=== PATIENT | female | born 1950 | race Native Hawaiian/Other Pacific Islander ===

== ENCOUNTER 2016-10-07 23:10 | Emergency (ER) | payer MEDICARE, OTHER ==
[2016-10-07 23:17] VITALS: BP 172/106
--- NOTE | 2016-10-07 23:31 | ED Physician Documentation ---
History of Present Illness - Stated complaint Stated Complaint: COUGHING - Chief complaint Chief Complaint: Resp - History obtained from History obtained from: Patient, Family - History of Present Illness Timing: Other (2 months ago) Pain level max: 0 Pain level now: 0 Improved by: nothing Worsened by: seems to be worse in the mornings - Additonal information Additional information: Patient is a 65-year-old female who presents to the emergency department complaining of coughing for the past month and a half or so. Thought it may be related to her lisinopril so stopped this. She states that she also has a history of seasonal allergies, but quit taking her allergy medication. States that she tried Robitussin, but this did not help the cough. The cough is dry. No fevers. Review of Systems Constitutional: denies: Fever, Chills Nose: reports: Rhinorrhea / runny nose (occasionally feels her nose running down her throat) Throat: denies: Sore throat Cardiac: denies: Chest pain / pressure GI: denies: Abdominal Pain, Vomiting, Diarrhea Skin: denies: Rash Musculoskeletal: denies: Neck pain, Back pain Neurologic: denies: Headache PD PAST MEDICAL HISTORY - Past Medical History Past Medical History: Yes Cardiovascular: Hypertension Endocrine/Autoimmune: Type 2 diabetes - Past Surgical History Past Surgical History: Yes - Present Medications Home Medications: Ambulatory Orders Medication Instructions Recorded Confirmed Ibuprofen [Motrin] 800 mg PO Q8H PRN #30 tablet 07/06/15 Benzonatate [Tessalon Perle] 100 - 200 mg PO TID PRN #30 capsule 10/07/16 Cetirizine [ZyrTEC] 10 mg PO DAILY #14 tablet 10/07/16 - Allergies Allergies/Adverse Reactions: Allergies Allergy/AdvReac Type Severity Reaction Status Date / Time No Known Drug Allergies Allergy Verified 07/06/15 19:03 - Social History Does the pt smoke?: No Smoking Status: Never smoker Does the pt drink ETOH?: No Does the pt have substance abuse?: No - Family History Family history: reports: Non contributory PD ED PE NORMAL - Vitals Vital signs reviewed: Yes - General General: Alert and oriented X 3, No acute distress, Well developed/nourished - HEENT HEENT: PERRL, Ears normal, Moist mucous membranes, Other (cobblestoning of the posterior oropharynx. otherwise normal exam.) - Neck Neck: Supple, no meningeal sign - Cardiac Cardiac: RRR, Strong equal pulses - Respiratory Respiratory: No respiratory distress, Clear bilaterally - Derm Derm: Warm and dry - Neuro Neuro: Alert and oriented X 3 - Psych Psych: Normal mood, Normal affect Results - Vitals Vitals: Vital Signs - 24 hr 10/07/16 23:14 Temperature 36.6 C Heart Rate 94 Respiratory 18 Rate Blood Pressure 172/106 H O2 Saturation 97 Oxygen O2 Source Room air PD MEDICAL DECISION MAKING - ED course Complexity details: re-evaluated patient, considered differential, d/w patient, d/w family ED course: Patient is a 65-year-old female who presents to the emergency department with coughing for the past month and a half. Seems to be related to postnasal drip. She is well-appearing, nontoxic. Afebrile. Normal oropharyngeal exam except for posterior cobblestoning. Will place her on allergy medication as well as antitussives. We will have her follow-up with her doctor for further evaluation of her hypertension. Patient counseled regarding signs and symptoms for which I believe and urgent re-evaluation would be necessary. Patient with good understanding of and agreement to plan and is comfortable going home at this time This document was made in part using voice recognition software. While efforts are made to proofread this document, sound alike and grammatical errors may occur. Departure - Departure Disposition: 01 Home, Self Care Clinical Impression: Post-nasal drip Hypertension Qualifiers: Hypertension type: essential hypertension Qualified Code(s): I10 - Essential ( primary) hypertension Condition: Good Instructions: ED Allergy Seasonal Follow-Up: Frieda Padilla MD [Provider Admit Priv/Credential] - Within 1 week Prescriptions: Benzonatate [Tessalon Perle] 100 - 200 mg PO TID PRN #30 capsule PRN Reason: Cough Cetirizine [ZyrTEC] 10 mg PO DAILY #14 tablet Comments: Return if you worsen. Take the allergy medication at night and this should help the post nasal drip the next day.
== END 2016-10-07 23:35 | disposition home or self-care (01) ==
LOC: ED 23:10
DX: R09.82 Postnasal drip (principal); I10 Essential (primary) hypertension; E11.9 Type 2 diabetes mellitus without complications
CPT/HCPCS: 99283

== ENCOUNTER 2017-04-08 08:38 | Outpatient (CLI) | payer MEDICARE, OTHER ==
--- NOTE | 2017-04-09 18:32 | Mammography Report ---
DIGITAL SCREENING MAMMOGRAM: 04/08/2017 CLINICAL INDICATION: A 66-year-old nulliparous patient for screening. COMPARISON: 05/2015, 09/2012. TECHNIQUE: Routine CC and MLO projections as well as bilateral laterally exaggerated craniocaudal views were obtained of the breasts. FINDINGS: The breasts again demonstrate heterogeneously dense fibroglandular parenchyma bilaterally. Coarse and punctate, typically benign calcifications are present. No suspicious masses, clustered microcalcifications, or regions of architectural distortion are identified. IMPRESSION: BENIGN FINDINGS. RECOMMENDATION: Routine annual screening unless otherwise clinically indicated. BIRADS category 2, benign findings. STANDARD QUALIFYING STATEMENTS 1. This examination was reviewed with the aid of Computed-Aided Detection (CAD). 2. A negative or benign imaging report should not delay biopsy if clinically suspicious findings are present. Consider surgical consultation if warranted. More than 5% of cancers are not identified by imaging. 3. Dense breasts may obscure an underlying neoplasm. TD: 04/09/2017 18:31
== END 2017-04-08 08:39 | disposition home or self-care (01) ==
LOC: DI 08:38
PROVIDERS: ATTEND Internal Medicine
DX: Z12.31 Encounter for screening mammogram for malignant neoplasm of breast (principal)
CPT/HCPCS: 77067

== ENCOUNTER 2017-04-25 06:00 | Day surgery (SDC) | payer MEDICARE, OTHER ==
[2017-04-25] MEDS ORDERED: LACTATED RINGERS 1,000 ML IV ONE (06:45)
[2017-04-25] MEDS ORDERED: fentaNYL 100 MCG/2 ML VIAL IVP ONE (07:36)
[2017-04-25] MEDS ORDERED: MIDAZOLAM 2 MG/2 ML VIAL IVP ONE (07:36)
[2017-04-25 08:18] VITALS: BP 108/59
== END 2017-04-25 06:01 | disposition home or self-care (01) ==
LOC: SDS 06:00
PROVIDERS: ATTEND Surgery
PROC: 0DBH8ZX Excision of Cecum, Via Natural or Artificial Opening Endoscopic, Diagnostic (ICD-10-PCS; principal; 2017-04-25 07:30)
DX: Z12.11 Encounter for screening for malignant neoplasm of colon (principal); K63.5 Polyp of colon; K64.8 Other hemorrhoids; E11.9 Type 2 diabetes mellitus without complications; E78.5 Hyperlipidemia, unspecified; I10 Essential (primary) hypertension; Z79.84 Long term (current) use of oral hypoglycemic drugs
CPT/HCPCS: 45380; J7120

== ENCOUNTER 2018-03-27 15:12 | Outpatient (CLI) | payer MEDICARE, OTHER ==
--- NOTE | 2018-03-28 10:56 | Ultrasound Report ---
Reason: ELEVATED LFTS Procedure Date: 03/27/2018 Accession Number: [id number] / [id number] Procedure: US - Abdomen Limited CPT Code: FULL RESULT: EXAM: ABDOMEN ULTRASOUND LIMITED, RUQ EXAM DATE: 03/27/2018 04:20 PM. CLINICAL HISTORY: ELEVATED LFTS. COMPARISON: None. TECHNIQUE: Real-time scanning was performed with static images obtained. FINDINGS: Liver: Liver parenchyma is heterogeneous and moderately hyperechoic. No discrete liver masses or intrahepatic bile duct dilation. However, evaluation for masses is limited secondary to the echogenicity. 18.4 cm. Main portal vein flow: Hepatopetal. Gallbladder: Distended gallbladder. No gallbladder wall thickening, stone or sonographic Barr sign. No pericholecystic fluid. Biliary System: CBD measures 9 mm. Prominent common bile duct. No intrahepatic bile duct dilation. No common bile duct stone or mass. Pancreas: Normal. Right kidney: 10 cm No hydronephrosis. Abdominal aorta and IVC: Normal. Other: None. IMPRESSION: 1. Enlarged moderately fatty liver. No mass. 2. Distended gallbladder without gallstones or sonographic findings concerning for acute cholecystitis. 3. Prominent common bile duct measures up to 9 mm. No obvious stone or mass. RADIA
== END 2018-03-27 15:13 | disposition home or self-care (01) ==
LOC: DI 15:12
PROVIDERS: ATTEND Internal Medicine
DX: K76.0 Fatty (change of) liver, not elsewhere classified (principal); K82.8 Other specified diseases of gallbladder
CPT/HCPCS: 76705

== ENCOUNTER 2018-04-14 13:53 | Outpatient (CLI) | payer MEDICARE, OTHER ==
--- NOTE | 2018-04-15 08:39 | Mammography Report ---
Reason: ROUTINE MAMMO Procedure Date: 04/14/2018 Accession Number: [id number] / [id number] Procedure: ARTEM - Screening Mammo w/Gage CPT Code: FULL RESULT: EXAM: Screening Mammo w/Gage DATE: 04/14/2018 2:18 PM CLINICAL HISTORY: Screening encounter. History of nulliparity. TECHNIQUE: Bilateral CC, laterally exaggerated CC, MLO views were obtained. COMPARISON: 04/08/2017 through 10/06/2012. FINDINGS: The breasts demonstrate heterogeneously dense fibroglandular parenchyma bilaterally. Typically benign vascular calcifications and typically benign coarse calcifications are again seen. Best seen on 3-D image 21 of the left breast 5.5 cm from the nipple (also left CC image 9 4.7 cm from the nipple) is a well-circumscribed hypodense ovoid nodule measuring up to 0.7 cm which is also identified on the 2015 study and 2012 study and therefore typically benign. No suspicious masses, clustered microcalcifications, or regions of architectural distortion are identified. IMPRESSION: Benign findings RECOMMENDATION: Routine annual screening unless otherwise clinically indicated. BIRADS CATEGORY 2: Benign findings STANDARD QUALIFYING STATEMENTS: 1. This examination was not reviewed with the aid of Computer-Aided Detection (CAD). 2. A negative or benign imaging report should not delay biopsy if clinically suspicious findings are present. Consider surgical consultation if warrented. More than 5% of cancers are not identified by imaging. 3. Dense breasts may obscure an underlying neoplasm. 4. This examination was reviewed with the aid of 3D breast imaging (tomosynthesis).
== END 2018-04-14 13:54 | disposition home or self-care (01) ==
LOC: DI 13:53
PROVIDERS: ATTEND Internal Medicine
DX: Z12.31 Encounter for screening mammogram for malignant neoplasm of breast (principal)
CPT/HCPCS: 77063; 77067

== ENCOUNTER 2018-06-09 17:11 | Emergency (ER) | payer MEDICARE, OTHER ==
--- NOTE | 2018-06-09 19:16 | ED Physician Documentation ---
PD HPI HEENT - Stated complaint Stated Complaint: LT SIDED FACE PAIN - Chief complaint Chief Complaint: Heent - History obtained from History obtained from: Patient - History of Present Illness Timing - onset: How many weeks ago (1) Timing - duration: Weeks (1) Timing - details: Gradual onset, Still present, Waxing and waning Location: Left ear (has pain around left ear, and feels like it is on left side of face as well. No rash nor sores. Has decreased hearing left ear.) Worsens: Swalllowing Associated symptoms: Swollen nodes (left side of neck). No: Fever, Congestion, Facial swelling Similar symptoms before: Has not had sx before Recently seen: Not recently seen Review of Systems Constitutional: denies: Fever, Chills, Myalgias Ears: reports: Loss of hearing, Ear pain. 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 HEENT: Chronic sinusitis, Other Psych: None Musculoskeletal: None Derm: None - Past Surgical History Past Surgical History: Yes HEENT: Cataracts - Present Medications Home Medications: Ambulatory Orders Medication Instructions Recorded Confirmed Losartan [Cozaar] 50 mg PO DAILY 04/24/17 04/24/17 Montelukast [Singulair] 10 mg PO QPM 04/24/17 04/24/17 Multivitamin [Multivitamins] 1 each PO 04/24/17 metFORMIN [Glucophage] 500 mg PO BIDWM 04/24/17 04/24/17 Doxycycline Hyclate 100 mg PO BID #20 capsule 06/09/18 Hydrocodone/Acetaminophen [[place] 1 each PO Q6H PRN #15 tablet 06/09/18 5-325 Tablet] Naproxen 375 mg PO BID #20 tablet 06/09/18 - Allergies Allergies/Adverse Reactions: Allergies Allergy/AdvReac Type Severity Reaction Status Date / Time No Known Drug Allergies Allergy Verified 07/06/15 19:03 - Social History Does the pt smoke?: No Smoking Status: Never smoker Does the pt drink ETOH?: No Does the pt have substance abuse?: No - Immunizations Immunizations are current?: Yes PD ED PE NORMAL - Vitals Vital signs reviewed: Yes - General General: Alert and oriented X 3, Well developed/nourished, Other (appears uncomfortable) - HEENT HEENT: Pharynx benign. No: Ears normal (right is okay. Left with fluid behind TM with minimal redness. The medial canal however is red with swelling. No exudate per se. ) - Neck Neck: Supple, no meningeal sign, Other (left preauricular adenopathy that is tender. ) - Cardiac Cardiac: RRR, No murmur - Respiratory Respiratory: Clear bilaterally - Abdomen Abdomen: Soft, Non tender Results - Vitals Vitals: Oxygen O2 Source Room air PD MEDICAL DECISION MAKING - ED course Complexity details: considered differential (the TM has some fluid behind it, and the canal is red with swelling. No exudate per se. There is not a rash externally and not appearing vesicular so does not seem shingles nor herpetic. ), d/w patient Departure - Departure Disposition: 01 Home, Self Care Clinical Impression: Cellulitis of left ear canal Otitis media Qualifiers: Otitis media type: suppurative Chronicity: acute Laterality: left Recurrence: non-recurrent Spontaneous tympanic membrane rupture: without spontaneous rupture Qualified Code(s): H66.002 - Acute suppurative otitis media without spontaneous rupture of ear drum, left ear Condition: Stable Record reviewed to determine appropriate education?: Yes Instructions: ED Otitis Media Acute Adult Follow-Up: Frieda Padilla MD [Primary Care Provider] - Prescriptions: Doxycycline Hyclate 100 mg PO BID #20 capsule Hydrocodone/Acetaminophen [[place] 5-325 Tablet] 1 each PO Q6H PRN #15 tablet PRN Reason: Pain Naproxen 375 mg PO BID #20 tablet Comments: The eardrum and ear canal do look red and inflamed. It looks like there is an infection there and this likely irritating the nerve coming into the face causing the pain on that side of the face. Use doxycycline antibiotic twice daily as directed. Naproxen anti-inflammatory twice daily as well. Add Tylenol or hydrocodone if needed for pain. Recheck if not improved over the next several days. Discharge Date/Time: 06/09/18 20:08
[2018-06-09] MEDS ORDERED: DOXYCYCLINE 100 MG TABLET PO STA (19:40)
[2018-06-09] MEDS ORDERED: NAPROXEN 250 MG TABLET PO STA (19:40)
[2018-06-09 20:09] VITALS: BP 184/96
--- NOTE | 2018-06-10 10:09 | ED Physician Documentation ---
ED Addendum - Addendum Addendum: 06/10/18 10:09 Took call from [facility], they do not carry that dose of naproxen, substituted 500 mg p.o. twice daily.
== END 2018-06-09 20:08 | disposition home or self-care (01) ==
LOC: ED 17:11
DX: H60.12 Cellulitis of left external ear (principal); H66.002 Acute suppurative otitis media without spontaneous rupture of ear drum, left ear; I10 Essential (primary) hypertension; E11.9 Type 2 diabetes mellitus without complications; Z79.84 Long term (current) use of oral hypoglycemic drugs
CPT/HCPCS: 99283; A9270

== ENCOUNTER 2018-09-08 11:51 | Outpatient (CLI) | payer MEDICARE, OTHER ==
[2018-09-08 13:04] LABS: ALBUMIN 3.6 g/dL (3.2-5.5); BILIRUBIN,TOTAL 0.7 mg/dL (0.2-1.0); CALCIUM 9.4 mg/dL (8.5-10.3); CREATININE 0.8 mg/dL (0.4-1.0); TOTAL PROTEIN 7.3 g/dL (6.7-8.2)
[2018-09-08 13:20] LABS: HB2 TOTAL 12.5 g/dL; HEMOGLOBIN A1C 0.83 g/dL; HEMOGLOBIN A1C % 8.2 % (4.6-6.2)
== END 2018-09-08 11:52 | disposition home or self-care (01) ==
LOC: LAB 11:51
PROVIDERS: ATTEND Internal Medicine
DX: E11.9 Type 2 diabetes mellitus without complications (principal); K76.0 Fatty (change of) liver, not elsewhere classified; Z79.899 Other long term (current) drug therapy
CPT/HCPCS: 36415; 80053; 82607; 83036

== ENCOUNTER 2020-01-28 15:21 | Outpatient (CLI) | payer MEDICARE, OTHER ==
--- NOTE | 2020-01-29 05:37 | Mammography Report ---
BILATERAL DIGITAL SCREENING MAMMOGRAM 3D/2D: 01/28/2020 CLINICAL: Routine screening. Comparison is made to exams dated: 04/14/2018 mammogram, 04/08/2017 mammogram - [facility], and 06/01/2015 mammogram - [facility]. The tissue of both breasts is predominan tly fatty. No significant masses, calcifications, or other findings are seen in either breast. There has been no significant interval change. IMPRESSION: NEGATIVE There is no mammographic evidence of malignancy. A 1 year screening mammogram is recommended. This exam was interpreted at Station ID: [id number]. NOTE: For mammograms, a report in lay terms will be sent to the patient. Approximately 15% of breast malignancies will not be visualized mammographically. In the management of a palpable breast mass, a negative mammogram must not discourage biopsy of a clinically suspicious lesion. Electronically Signed By: Sánchez Jacques acr/penrad:01/28/2020 16:40:46 ACR BI-RADS Category 1: Negative 3341F PARENCHYMAL PATTERN: (F) - The breast(s) demonstrate(s) diffuse fatty replacement. BI-RADS CATEGORY: (1) - 1 RECOMMENDATION: (ANNUAL) - Recommend routine annual screening mammography. [id number] 1 year screening LATERALITY: (B)
== END 2020-01-28 15:22 | disposition home or self-care (01) ==
LOC: DI.N 15:21
PROVIDERS: ATTEND Internal Medicine
DX: Z12.31 Encounter for screening mammogram for malignant neoplasm of breast (principal)
CPT/HCPCS: 77067

== ENCOUNTER 2020-05-25 16:41 | Emergency (ER) | payer MEDICARE, OTHER ==
--- NOTE | 2020-05-25 16:49 | ED Physician Documentation ---
PD HPI HEENT - Stated complaint Stated Complaint: LT EAR PX - History obtained from History obtained from: Patient - History of Present Illness Timing - onset: How many months ago (1) Timing - duration: Months (1) Timing - details: Gradual onset, Still present (consistently worse the past few days, with decreased hearing and sense of hearing echo sounds in left ear.), Waxing and waning Location: Left ear (pain and decreased hearing. no drainage.) Associated symptoms: Congestion. No: Fever, Swollen nodes, Facial swelling, Headache, Cough Similar symptoms before: Has not had sx before Review of Systems Constitutional: denies: Fever, Chills Ears: reports: Loss of hearing (left), Ear pain Nose: reports: Congestion. 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 HEENT: Chronic sinusitis, Other Psych: None Musculoskeletal: None Derm: None - Past Surgical History Past Surgical History: Yes HEENT: Cataracts - Present Medications Home Medications: Ambulatory Orders Medication Instructions Recorded Confirmed Losartan [Cozaar] 50 mg PO DAILY 04/24/17 04/24/17 Montelukast [Singulair] 10 mg PO QPM 04/24/17 04/24/17 Multivitamin [Multivitamins] 1 each PO 04/24/17 metFORMIN [Glucophage] 500 mg PO BIDWM 04/24/17 04/24/17 Doxycycline Hyclate 100 mg PO BID #20 capsule 06/09/18 Hydrocodone/Acetaminophen [[place] 1 each PO Q6H PRN #15 tablet 06/09/18 5-325 Tablet] Naproxen 375 mg PO BID #20 tablet 06/09/18 Amoxicillin 500 mg PO TID #21 cap 05/25/20 dexAMETHasone [Decadron] 4 mg PO DAILY #5 tablet 05/25/20 - Allergies Allergies/Adverse Reactions: Allergies Allergy/AdvReac Type Severity Reaction Status Date / Time lisinopril AdvReac Respiratory Verified 05/25/20 17:06 - Social History Does the pt smoke?: No Smoking Status: Never smoker Does the pt drink ETOH?: No Does the pt have substance abuse?: No - Immunizations Immunizations are current?: Yes PD ED PE NORMAL - Vitals Vital signs reviewed: Yes - General General: Alert and oriented X 3, No acute distress, Well developed/nourished - HEENT HEENT: Moist mucous membranes, Pharynx benign. No: Ears normal (right is francisca l. Left canal normal; TM with bulging and redness. Some swelling of tissue around the TM. No perforation. ) Results - Vitals Vitals: Vital Signs - 24 hr 05/25/20 05/25/20 16:45 16:52 Temperature 36.9 C Heart Rate 91 89 Respiratory 18 18 Rate Blood Pressure 152/92 H 126/89 H O2 Saturation 99 98 Oxygen O2 Source Room air Departure - Departure Disposition: 01 Home, Self Care Clinical Impression: Otitis media Qualifiers: Otitis media type: suppurative Chronicity: acute Laterality: left Recurrence: non-recurrent Spontaneous tympanic membrane rupture: without spontaneous rupture Qualified Code(s): H66.002 - Acute suppurative otitis media without spontaneous rupture of ear drum, left ear Condition: Stable Record reviewed to determine appropriate education?: Yes Instructions: ED Otitis Media Acute Adult Follow-Up: Frieda Padilla MD [Primary Care Provider] - Prescriptions: Amoxicillin 500 mg PO TID #21 cap dexAMETHasone [Decadron] 4 mg PO DAILY #5 tablet Comments: It does look like a fluid collection behind the eardrum on that side along with redness and some swelling. I presume some trapped fluid as well as an infection. Continue with your antihistamine and montelukast. Use Decadron steroid for inflammation and promote drainage daily for 5 days and then resume your fluticasone daily for the next week or 2 at least. Amoxicillin 3 times a day for a week for the infection. I would anticipate improvement over the next several days and resolution over 4 to 6 days. Recheck if not improved in that timeframe. Discharge Date/Time: 05/25/20 17:15
[2020-05-25 16:54] VITALS: BP 126/89
[2020-05-25] MEDS ORDERED: DEXAMETHASONE 10 MG/ML VIAL PO STA (16:59)
[2020-05-25] MEDS ORDERED: CHERRY SYRUP 10 ML UDC PO ONE (16:59)
[2020-05-25] MEDS ORDERED: CETIRIZINE 10 MG TABLET PO STA (16:59)
[2020-05-25] MEDS ORDERED: AMOXICILLIN 250 MG CAPSULE PO STA (16:59)
== END 2020-05-25 17:15 | disposition home or self-care (01) ==
LOC: ED 16:41
DX: H66.002 Acute suppurative otitis media without spontaneous rupture of ear drum, left ear (principal); I10 Essential (primary) hypertension; E11.9 Type 2 diabetes mellitus without complications; Z79.84 Long term (current) use of oral hypoglycemic drugs
CPT/HCPCS: 99282; 99283; A9270

== ENCOUNTER 2021-11-23 08:00 | Outpatient (CLI) | payer MEDICARE, OTHER ==
[2021-11-23 17:08] LABS: BASOPHILS # (AUTO) 0.1 10^3/uL (0.0-0.1); EOSINOPHILS # (AUTO) 0.1 10^3/uL (0.0-0.7); EOSINOPHILS % (AUTO) 1.5 %; HCT - HEMATOCRIT 38.7 % (37.0-47.0); HGB - HEMOGLOBIN 12.9 g/dL (12.0-16.0); LYMPHOCYTES # (AUTO) 2.6 10^3/uL (1.5-3.5); LYMPHOCYTES % (AUTO) 29.3 %; MEAN CORPUSCULAR HEMOGLOBIN 29.1 pg (27.0-31.0); MEAN CORPUSCULAR HGB CONC 33.3 g/dL (32.0-36.0); MEAN CORPUSCULAR VOLUME 87.4 fL (81.0-99.0); MEAN PLATELET VOLUME 9.9 fL (7.9-10.8); MONOCYTES # (AUTO) 0.5 10^3/uL (0.0-1.0); MONOCYTES % (AUTO) 5.8 %; NEUTROPHILS # (AUTO) 5.4 10^3/uL (1.5-6.6); NEUTROPHILS % (AUTO) 61.7 %; PLT - PLATELET COUNT 360 10^3/uL (130-450); RED BLOOD COUNT 4.43 10^6/uL (4.20-5.40); RED CELL DISTRIBUTION WIDTH 12.5 % (12.0-15.0); WHITE BLOOD COUNT 8.8 x10^3/uL (4.8-10.8)
[2021-11-23 17:29] LABS: ALBUMIN 4.1 g/dL (3.2-5.5); ALBUMIN/GLOBULIN RATIO 1.3 (1.0-2.2); ALKALINE PHOSPHATASE 69 IU/L (42-121); ALT ALANINE AMINOTRANSFERASE 35 IU/L (10-60); AST ASPARTATE AMINOTRANSFERASE 22 IU/L (10-42); BILIRUBIN,TOTAL 0.7 mg/dL (0.2-1.0); BUN - BLOOD UREA NITROGEN 18 mg/dL (6-20); CALCIUM 9.2 mg/dL (8.5-10.3); CARBON DIOXIDE - CO2 25 mmol/L (21-32); CHLORIDE 103 mmol/L (101-111); CHOL/HDL RATIO 6.7 (<4.4); CHOLESTEROL 300 mg/dL; CK- CREATINE KINASE 65 IU/L (22-269); CREATININE 0.7 mg/dL (0.4-1.0); GFR - MDRD 82 (>89); GLUCOSE 158 mg/dL (70-100); HDL CHOLESTEROL 45 mg/dL; LDL CHOLESTEROL,CALCULATED 193 mg/dL; LDL/HDL RATIO 4.3 (<4.4); SODIUM 136 mmol/L (135-145); TOTAL PROTEIN 7.3 g/dL (6.7-8.2); TRIGLYCERIDES 311 mg/dL; VLDL CHOLESTEROL 62 mg/dL
[2021-11-23 17:30] LABS: THYROID STIMULATING HORMONE 1.72 uIU/mL (0.34-5.60)
[2021-11-23 18:24] LABS: BILIRUBIN,URINE NEGATIVE (NEGATIVE); GLUCOSE, URINE (UA) NEGATIVE (NEGATIVE); KETONES,URINE (UA) NEGATIVE (NEGATIVE); LEUKOCYTE ESTERASE, URINE NEGATIVE (NEGATIVE); NITRITE,URINE NEGATIVE (NEGATIVE); OCCULT BLOOD,URINE NEGATIVE (NEGATIVE); PH,URINE 5.5 PH (5.0-7.5); PROTEIN,URINE NEGATIVE (NEGATIVE); UROBILINOGEN,URINE 0.2 (NORMAL) E.U./dL (NORMAL)
[2021-11-23 18:31] LABS: CLARITY,URINE CLEAR (CLEAR)
[2021-11-23 19:18] LABS: EPITHELIAL CELLS,UR RARE Transitional /HPF (<= Few); RBC,URINE None Seen /HPF (0-5); SQUAMOUS EPITHELIAL CELL,UR RARE Squamous (<= Few); WBC,URINE 0-3 /HPF (0-5)
[2021-11-23 19:19] LABS: BACTERIA,URINE None Seen /HPF (None Seen)
[2021-11-23 19:25] LABS: CREATININE,URINE 64.5 mg/dL
[2021-11-23 19:32] LABS: MICROALBUMIN,URINE < 0.2 mg/dL (0-300.0)
[2021-11-23 20:37] LABS: ESTIMATED AVERAGE GLUCOSE 212 mg/dL (70-100)
== END 2021-11-23 23:59 | disposition home or self-care (01) ==
LOC: LAB.R 08:00
PROVIDERS: ATTEND Internal Medicine
DX: Z00.00 Encounter for general adult medical examination without abnormal findings (principal); E11.9 Type 2 diabetes mellitus without complications; J45.991 Cough variant asthma; R74.8 Abnormal levels of other serum enzymes; K76.0 Fatty (change of) liver, not elsewhere classified; I10 Essential (primary) hypertension; Z79.899 Other long term (current) drug therapy
CPT/HCPCS: 80053; 80061; 81001; 82043; 82550; 82570; 82607; 83036; 83721; 84443; 85025; 87086

== ENCOUNTER 2021-12-07 10:46 | Outpatient (CLI) | payer MEDICARE, OTHER ==
--- NOTE | 2021-12-08 10:18 | Mammography Report ---
BILATERAL DIGITAL SCREENING MAMMOGRAM 3D/2D: 12/07/2021 CLINICAL: Routine screening. Comparison is made to exams dated: 01/28/2020 mammogram, 04/14/2018 mammogram, 04/08/2017 mammogram - [facility], and 06/01/2015 mammogram - [facility]. Both breasts are heterogeneously dense, which may obscure small masses (category c / 51-75% glandular tissue). No significant masses, calcifications, or other findings are seen in either breast. There has been no significant interval change. IMPRESSION: NEGATIVE There is no mammographic evidence of malignancy. A 1 year screening mammogram is recommended. Based on the Tyrer Cuzick model (a risk assessment model) the patients lifetime risk is 7.5% and her 10 year risk is 5.1%. According to the ACR, ACS, and NCCN guidelines, an annual breast MRI exam jaki g with mammogram is recommended if the patients lifetime risk is 20% or greater. This exam was interpreted at Station ID: [id number]. NOTE: For mammograms, a report in lay terms will be sent to the patient. Approximately 15% of breast malignancies will not be visualized mammographically. In the management of a palpable breast mass, a negative mammogram must not discourage biopsy of a clinically suspicious lesion. Electronically Signed By: Yohannes aguirre/isabel:12/07/2021 21:53:06 ACR BI-RADS Category 1: Negative 3341F PARENCHYMAL PATTERN: (D) - The breast(s) demonstrate(s) heterogeneously dense fibroglandular kenia ryan. BI-RADS CATEGORY: (1) - 1 RECOMMENDATION: (ANNUAL) - Recommend routine annual screening mammography. [id number] 1 year screening LATERALITY: (B)
== END 2021-12-07 10:47 | disposition home or self-care (01) ==
LOC: DI.N 10:46
PROVIDERS: ATTEND Internal Medicine
DX: Z12.31 Encounter for screening mammogram for malignant neoplasm of breast (principal)

== ENCOUNTER 2021-12-19 23:12 | Emergency (ER) | payer MEDICARE, OTHER ==
[2021-12-19 23:32] VITALS: BP 115/85
== END 2021-12-20 00:56 | disposition left against medical advice (07) ==
LOC: ED 23:12
DX: Z53.21 Procedure and treatment not carried out due to patient leaving prior to being seen by health care provider (principal)

== ENCOUNTER 2023-01-28 13:48 | Outpatient (CLI) | payer MEDICARE, OTHER ==
--- NOTE | 2023-01-28 14:29 | XRAY Report ---
PROCEDURE: Chest 2 View X-Ray INDICATIONS: ACUTE COUGH TECHNIQUE: 2 views of the chest were acquired. COMPARISON: None. FINDINGS: Surgical changes and devices: None. Lungs and pleura: Peribronchial cuffing. No consolidation. Mediastinum: Mediastinal contours appear normal. Heart size is normal. Bones and chest wall: No suspicious bony lesions. Overlying soft tissues appear unremarkable. IMPRESSION: Peribronchial cuffing, suggestive of infectious or inflammatory bronchitis. Reviewed by: Ronny Rogers MD on 01/28/2023 2:28 PM PST Approved by: Ronny Rogers MD on 01/28/2023 2:28 PM PST Station ID: [id number]
--- NOTE | 2023-01-28 14:30 | XRAY Report ---
PROCEDURE: Elbow 3 View RT INDICATIONS: PARASTHESIA TECHNIQUE: 3 views of the elbow were acquired. COMPARISON: None. FINDINGS: Bones: No fractures or dislocations. No suspicious bony lesions. Soft tissues: No effusion. No suspicious soft tissue calcifications or masses. IMPRESSION: No acute bony abnormality. Reviewed by: Ronny Rogers MD on 01/28/2023 2:29 PM PST Approved by: Ronny Rogers MD on 01/28/2023 2:29 PM PST Station ID: [id number]
--- NOTE | 2023-01-28 14:30 | XRAY Report ---
PROCEDURE: Forearm RT INDICATIONS: PARASTHESIA TECHNIQUE: 2 views of the forearm were acquired. COMPARISON: None. FINDINGS: Bones: No fractures or dislocations. No suspicious bony lesions. Soft tissues: No suspicious soft tissue calcifications or masses. IMPRESSION: No acute bony abnormality. Reviewed by: Ronny Rogers MD on 01/28/2023 2:29 PM PST Approved by: Ronny Rogers MD on 01/28/2023 2:29 PM PST Station ID: [id number]
== END 2023-01-28 13:49 | disposition home or self-care (01) ==
LOC: DI 13:48
PROVIDERS: ATTEND Internal Medicine
DX: R05.1 Acute cough (principal); R20.2 Paresthesia of skin

== ENCOUNTER 2023-02-26 15:09 | Outpatient (CLI) | payer MEDICARE, OTHER ==
--- NOTE | 2023-02-28 11:47 | Mammography Report ---
BILATERAL DIGITAL SCREENING MAMMOGRAM 3D/2D: 02/26/2023 CLINICAL: Routine screening. Comparison is made to exams dated: 12/07/2021 mammogram, 01/28/2020 mammogram, 04/14/2018 mammogram, mammogram - [facility], and 06/01/2015 mammogram - [facility] Leandro chris. Both breasts are heterogeneously dense, which may obscure small masses (category c / 51-75% glandular tissue). There are benign calcifications in both breasts. No significant masses, calcifications, or other findings are seen in either breast. There has been no significant interval change. IMPRESSION: BENIGN There is no mammographic evidence of malignancy. A 1 year screening mammogram is recommended. Based on the Tyrer Cuzick model (a risk assessment model) the patients lifetime risk is 7.0% and her 10 year risk is 5.3%. According to the ACR, ACS, and NCCN guidelines, an annual breast MRI exam along with mammogram is recommended if the patients lifetime risk is 20% or greater. This exam was interpreted at Station ID: [id number]. NOTE: For mammograms, a report in lay terms will be sent to the patient. Approximately 15% of breast malignancies will not be visualized mammographically. In the management of a palpable breast mass, a negative mammogram must not discourage biopsy of a clinically suspicious lesion. Electronically Signed By: Jaci jimenez/isabel:02/27/2023 10:44:10 letter sent: No_Letter ACR BI-RADS Category 2: Benign Finding(s) 3342F PARENCHYMAL PATTERN: (D) - The breast(s) demonstrate(s) heterogeneously dense fibroglandular kenia ryan. BI-RADS CATEGORY: (2) - 2 Mammogram [id number] 1 year screening LATERALITY: (B)
== END 2023-02-26 15:10 | disposition home or self-care (01) ==
LOC: DI.N 15:09
PROVIDERS: ATTEND Internal Medicine
DX: Z12.31 Encounter for screening mammogram for malignant neoplasm of breast (principal); R92.333 Mammographic heterogeneous density, bilateral breasts; R92.1 Mammographic calcification found on diagnostic imaging of breast